=== PATIENT | female | born 1940 | race Caucasian/White ===

== ENCOUNTER 2016-10-20 01:06 | Inpatient (IN) | payer OTHER ==
[~2016-10-20] VITALS: Ht 160 cm; Wt 110.7 kg
[~2016-10-20 01:06] MED LIST: ASPIRIN EC81 M1 PO; CALCIUM 500 +1 EAC5 PO; ENALAPRIL-HCTZ1 EACH PO; FERROUSUL325 MG PO; FIORICET 50-301 EACH PO; FUROSEMIDE20 M1 PO; MAGNESIUM OXID400 M1 PO; OCUVITE EYE +1 EACH PO; VITAMIN C500 M8 PO; VYTORIN 10-201 EACH PO
--- NOTE | 2016-10-20 09:48 | Operative Report ---
Operative/Inv Procedure Report Surgery Date: 10/20/16 Name of Procedure: Left total knee arthroplasty Pre-Operative Diagnosis: Primary osteoarthritis left knee Post-Operative Diagnosis: Primary osteoarthritis left knee Estimated Blood Loss: less than 50ml Surgeon/Leading Firefighter: UYEN VIRK,KUSHAL Cason Anesthesia: block (SPINAL) IV Fluids: See anesthesia record Implants: Striker triathlon posterior stabilize knee size 5 femur, size 5 tibia, 27 patellar button and a 9 mm polyethylene insert Drains: None Specimens: Bone Tourniquet: 49 minutes Complications: None Condition: Stable Operative Indication: Patient is a 76-year-old female who has failed conservative treatment for her osteoarthritis of her left knee. She was indicated for surgical total knee arthroplasty. The risks and benefits of the procedure were discussed with the patient detail and she wished to proceed. Skilled set of hands was necessary provided by physician orthopedic physician assistant Yusuf Cason weighted with retraction positioning and component assembly throughout the case. Operative/Procedure Note Note: Anesthesia the patient's left leg had a tourniquet placed, a [place] catheter was placed in the left lower extremity is prepped and draped usual sterile fashion. To begin the procedure standard midline incision for total knee arthroplasty was performed. Sharp dissection was carried down through the skin and subcutaneous and tissue and fat. A medial parapatellar arthrotomy was performed and the patella was everted. Fat pad is removed from the patellar tendon. Patellar thickness was measured to be 23 mm and a plan resection of 9 mm was performed on the patella using patellar jig. Patella was then sized to be a size 27 symmetric patellar button in the jig for the 27th button was placed onto the kneecap and the lug holes were drilled. The knee was placed in flexion and the patella was retracted laterally. Z retractors were placed to protect the medial collateral ligaments. The cruciate leg lengths were resected sharply with a knife. The menisci removed both medially and laterally sharply. Intramedullary canal of the femur was entered with a step drill and the intramedullary canal distal cutting guide was placed. The distal cut of femur set for an 8 mm cut with a 6 valgus cut. Distal cut was made without complication bone was passed off as specimen. The intramedullary cutting guide was removed and the femur was sized. The femur sized to be a size 5 femur and a 4 in one size 5 femur cutting block was placed on the distal femur. Anterior, posterior, chamfer cuts were made with no complications. The box cut guide for a size 5 femur was placed on the distal femur and the box cut was made for posterior stabilized knee. Bone was passed off. Attention was then turned to the tibia. A pickle fork retractor was placed posterior to the tibia and the tibia was translated anteriorly. Step drill was used to enter the intramedullary canal of the tibia. Intramedullary cutting guide was placed on the tibia and a plan resection of 4 mm of bone off the medial side of the tibia was performed. This bone was passed off as specimen. The extension gap was measured and found to be 9 mm. The flexion gap was also 9 mm. A size 5 tibial trial was placed found to be the appropriate size for the tibia and a trial reduction was done with a 5 femur, 5 tibia and a 9 mm polyethylene insert. The knee had full extension and 100 of flexion. We cannot flex knee any more than 100 due to the size of the thigh. It was stable to varus and valgus stress at 0 and 60. The knee was taken through a range of motion and the tibial component rotation was marked. The instruments and components removed and the tibial tray was pinned in place. The keel cut was made. At this point all entrance removed the knee was pulse lavaged. The cement was mixed on the back table and the components were cemented with the tibial component cemented first followed by the femoral component and the patellar button. Excess cement was removed with curettes. A 9 mm polyethylene trial insert was placed onto the tibial tray the knee was placed in full extension while cement hardened. Once the cement hardened was taken through a range of motion and found to be stable at 0 and 60. A 9 mm polyethylene insert was opened and locked into the tibial tray. The wound was pulse lavaged and the tourniquet was released. The arthrotomy is closed #1 Vicryl interrupted sutures. The deep tissues closed with #1 Vicryl interrupted sutures. The subcutaneous tissues closed with 2-0 Vicryl interrupted sutures and the skin was closed lizzette. Sterile dressings applied and patient was awakened and taken recovery room in stable condition.
[2016-10-20 12:05] VITALS: BP 122/60
--- NOTE | 2016-10-20 12:38 | PN- Orthopedic ---
Subjective Subjective: The patient was seen this afternoon postoperatively. She reports that her pain is under adequate control and has no other complaints at the current time. Objective Vital Signs and I&Os Intake & Output 10/20 1600 10/20 0000 10/19 0000 Intake Total Output Total Balance Patient 244 lb Weight Vital signs: Blood pressure 110/72, pulse 70, but sure 98.7, O2 saturation 98% on room air. I's and O's: 1500 ML's in of lactated Ringer's/150 ML's out of urine via [place] catheter/EBL less than 100 Physical Exam: Gen.: Alert and in no obvious distress Skin: Warm and dry Cardiac: S1 and S2 regular Pulmonary: Bilateral breath sounds are equal and decreased at bases Extremities: Bilateral lower extremities are warm without calf tenderness or significant edema. Gross motor and sensory are intact. Left knee surgical dressing is clean, dry, and intact. There is an On-Q pain pump in place. Assessment/Plan Assessment/Plan Assessment: 76-year-old female status post left total knee arthroplasty. Postoperative the patient is progressing as expected and her pain is under adequate control. Plan: Out of bed with physical therapy patient is weightbearing as tolerated Continue current pain regiment 2 doses of postoperative prophylactic antibiotics Start anticoagulation tonight's with 5 mg of Coumadin by mouth 1 dose Follow-up morning laboratory studies Advance diet as tolerated Strict I's and O's Resume home medications Incentive spirometry Core Measures/Miscellaneous Venous Thromboembolism VTE Risk Factors: Age > 40, Obesity, Surgery VTE Contraindications: No Contraindications VTE Diagnosis: No Beta [place] Is Beta [place] a Home Med? No Antibiotics Is Patient on Antibiotics? Yes If Yes: prophylaxis
--- NOTE | 2016-10-20 13:41 | NUR ---
PATIENT ATE LUNCH CONSISTING OF FRESH FRUIT AND YOGURT CUP, UPON COMPLETION VOMITTED APPROXIMATELY 50 ML OF LIQUID MIXED WITH FOOD PARTICLES, NO COMPLAINTS OF ABDOMINAL PAIN, JUST SOME NAUSEA, ZOFRAN GIVEN WILL MONITOR.
--- NOTE | 2016-10-20 14:28 | NUR ---
PHYSICAL THERAPY: Recieved consult orders, reviewed chart. Patient s/p L elective TKA 10/20/2016. Patient was recieved in bed, c/o nausea with recent episode of vomitting and meds adm as appropriate. Patient refusing P.T. evaluation, transfer training, or bedlevel at this time 2* symptoms. Will f/u as appropraite.
--- NOTE | 2016-10-20 14:39 | NUR ---
PATIENT ADMITTED FROM PACU AT 1200. PATIENT ALERT AND ORIENTED X 3. PAIN OF 1/10 TO LEFT KNEE. ON-Q-PUMP INTACT AND SITE C,D&I. PATIENT C/O OF NAUSEA AND HAD VOMITUS X 2. ZOFRAN GIVEN FIRST WITH NO EFECT. REGLAN GIVEN WITH GOOD EFFECT. DAUGHTER AT BEDSIDE. CALL LIGHT WITHIN REACH. WILL CONTINUE TO MONITOR.
[2016-10-20 15:00] VITALS: BP 136/80
--- NOTE | 2016-10-20 15:25 | PN- Student ---
Subjective Subjective: Patient states she had some nausea and vomiting after lunch. States her vomit consisted of her lunch contents, and that the nurse had to give her two different medications to stop the severe nausea. Patient currently reports no problems and no pain. She states the worst the pain has been since surgery is a 1/10. She denies chest pain, shortness of breath, numbness or tingling in extremities, dysuria or flatus. Objective Objective: Vitals: BP: 136/80 Pulse: 69 Resp: 20 Temp: 97.3F SpO2: 92% RA Physical Exam: General: Patient resting comfortably in bed, well-appearing, in no acute distress. Alert and oriented to person, place, time and event. Skin: [place], warm and dry. Head: Normocephalic, atraumtic. Eyes: PERRL, EOMI. Cardiac: Regular rate and rhythm, normal S1/S2, no murmurs, rubs or gallops. Pulmonary: Clear to ausculation bilaterally, no wheezes, rhonchi, or rales. Abdomen: Soft, non-distended, non-tender, normoactive bowel sounds. Extremities: 2+ bilateral radial and dorsalis pedis pulses with sensory and motor intact. No calf tenderness, swelling or edema. Left knee covered by dressing and bandages with no obvious drainage. Results Results: Microbiology 10/20 UNK URINE ROUT: Urine Culture - RECD Assessment/Plan Assessment: Patient is a 76 year old female POD#0 s/p left total knee replacement without hospital stay complications. Plan: -Continue pain management as directed. -Continue ALPs. -Encourage out of bed ambulation as permitted. -Physical therapy as directed. -Coumadin as prescribed for DVT prophylaxis. -Ondasteron 4mg IV Q6hrs PRN for nausea. -Discontinue jane when weight bearing tolerated. -Monitor I/O's. -Encourage incentive spirometry. -Continue home meds as needed. Will discuss the above with PA Surgical team. Nehemias MAYNARD-S2
--- NOTE | 2016-10-20 15:30 | NUR ---
PHYSICAL THERAPY: ATTMEPTED TO SEE PATIENT AGAIN THIS AFTERNOON. PATIENT CONTINUES TO REFUSE P.T. DUE TO SYMPTOMS AND FATIGUE. PATIENT AWARE THAT SHE IS DEFERRING P.T. EVALUATION UNTIL TOMORROW MORNING. NURSING TO UTILIZE BEDSIDE COMMODE AND RW COMFORTABLE THIS P/M.
[2016-10-20 17:28] VITALS: BP 120/60
[2016-10-20 19:07] VITALS: BP 122/80
--- NOTE | 2016-10-20 19:58 | NUR ---
PATIENT REFUSED MORNING MEDICATION ON ARRIVAL TO FLOOR. CAESAR MADDOX AWARE. PATIENT TOOK EVENING MEDICATION WHICH INCLUDED WARFARIN AND LIPITOR. DENIES PAIN. PATIENT HAVING TOAST AND JUICE. WILL CONTINUE TO MONITOR.
[2016-10-20 21:26] VITALS: BP 124/80
[2016-10-21 01:19] VITALS: BP 122/70
[2016-10-21 06:34] VITALS: BP 126/70
--- NOTE | 2016-10-21 08:03 | PN- Orthopedic ---
Subjective Subjective: Reports expected knee soreness. Nausea / vomiting from yesterday has resolved. Now tolerating food. Not yet out of bed. No dizziness. No shortness of breath. No chest pains. Objective Vital Signs and I&Os Vital Signs Date Time Temp Pulse Resp B/P Pulse O2 O2 Flow FiO2 Ox Delivery Rate /04 2034 98.1 63 20 126/70 92 Room Air 03/ 0119 98.3 64 20 122/70 93 Room Air 03/ 2126 98.3 68 20 124/80 93 Room Air 03/ 1907 98.2 69 20 122/80 91 Room Air 03/ 1728 68 20 120/60 92 Room Air 03/08 1500 65 122/60 03/08 1500 97.3 69 20 136/80 92 Room Air / 1205 97.4 65 16 122/60 98 Room Air Intake & Output 03/ 1600 03/09 0800 03/09 0000 03/08 1600 03/08 0800 03/08 0000 Intake Total 940 630 Output Total 700 750 200 Balance -700 190 430 Intake, IV 700 150 Intake, Oral 240 480 Output, Urine 700 750 200 Patient 244 lb Weight Physical Exam: General - alert & oriented x 3. comfortable. no acute distress. Lungs - clear bilaterally. no w/r/r. Cardiac - s1s2. reg. Abdomen - soft. nontender. - jane draining clear, yellow urine. Extremities - warm bilaterally. no c/c/e. left leg dressing c/d/i. calves soft and nontender b/l. nvi. Assessment/Plan Assessment/Plan This 76-year-old female is POD#1 s/p left total knee arthroplasty tolerating food now. d/c iv fluids pain control as ordered PT eval, wbat dressing change on POD#2 luis eduardo-operative antibiotics complete f/u labs coumadin accordingly bowel regime d/c jane catheter d/c planning will d/w Core Measures/Miscellaneous Venous Thromboembolism VTE Risk Factors: Age > 40, Obesity, Surgery VTE Contraindications: No Contraindications VTE Diagnosis: No [place] Is Beta [place] a Home Med? No Antibiotics Is Patient on Antibiotics? Yes If Yes: prophylaxis
[2016-10-21 08:22] LABS: ABSOLUTE BASOPHIL COUNT 0 /CUMM (0.0-0.2); ABSOLUTE EOSINOPHIL COUNT 0 /CUMM (0.0-0.7); ABSOLUTE GRANULOCYTE CT 9.3 /CUMM (1.4-6.5); ABSOLUTE LYMPH COUNT 0.9 /CUMM (1.2-3.4); ABSOLUTE MONOCYTE COUNT 0.9 /CUMM (0.10-0.60); BASOPHIL % 0 % (0.0-2.0); EOSINOPHIL % 0.1 % (0-5); HEMATOCRIT 37.1 % (37-47); MEAN CORPUSCULAR HGB 33.6 PG (27.0-31.0); MEAN CORPUSCULAR HGB CONC 33.7 G/DL (33.0-37.0); MEAN CORPUSCULAR VOLUME 99.6 FL (81.0-99.0); MEAN PLATELET VOLUME 9.7 FL (7.4-10.4); PLATELET COUNT 193 /CUMM (130-400); RBC DISTRIBUTION WIDTH 12.8 % (11.5-14.5); RED BLOOD CELL CT 3.72 /CUMM (4.20-5.40); WHITE BLOOD CELL COUNT 11.1 /CUMM (4.8-10.8)
[2016-10-21 08:40] LABS: PT 11.3 SEC (9.4-12.5)
[2016-10-21 09:15] LABS: GRANULOCYTE % 83.3 % (42.2-75.2)
--- NOTE | 2016-10-21 13:27 | NUR ---
PT SAT UP WITH PHYSICAL THERAPY. PT FEELING LIGHTHEADED AND DIZZY. BP 98/52 HR 70 SURG CAESAR MADDOX NOTIFIED. NO NEW ORDERS AT THIS TIME. PT DRINKING CUP OF WATER AT THIS TIME AND IN BED. PHYSICAL THERAPIST GRACY WILL RETURN LATER IN THE DAY. THIS NURSE WILL CONTINUE TO MONITOR PATIENT.
--- NOTE | 2016-10-21 14:29 | NUR ---
1400 PT SITTING UP IN BED, BP 122/78, HR 68.
--- NOTE | 2016-10-21 14:46 | NUR ---
1430 PT WALKED STEPS WITH PHYSICAL THERAPY AND BECAME LIGHTED AND NAUSEOUS. PT SITTING DOWN IN THE CHAIR AT THIS TIME. BP 118/70 HR 70. SURG CAESAR MADDOX NOTIFIED. NO NEW ORDERS AT THIS TIME. ZOFRAN WILL BE GIVEN TO PATIENT FOR NAUSEA.
[2016-10-21 14:49] VITALS: BP 118/58
--- NOTE | 2016-10-21 16:38 | NUR ---
1500 - PT STATES SHE IS NO LONGER EXPERIENCING NAUSEA.
--- NOTE | 2016-10-21 16:39 | NUR ---
PT GIVEN TORADOL AT 1546 FOR 10/10 PAIN. PATIENT SLEEPING IN BED AT THIS TIME.
--- NOTE | 2016-10-21 21:06 | NUR ---
SETH REMOVED AT 0830 AM TODAY. PATIENT VOIDED 400 ML AT 1400. PT AX1 TO TOILET WITH ROLLING WALKER.
[2016-10-21 22:13] VITALS: BP 126/64
[2016-10-22 07:35] VITALS: BP 128/60
[2016-10-22 08:09] LABS: ABSOLUTE BASOPHIL COUNT 0 /CUMM (0.0-0.2); ABSOLUTE EOSINOPHIL COUNT 0 /CUMM (0.0-0.7); ABSOLUTE GRANULOCYTE CT 7.4 /CUMM (1.4-6.5); BASOPHIL % 0.2 % (0.0-2.0); EOSINOPHIL % 0.1 % (0-5); GRANULOCYTE % 78.6 % (42.2-75.2); HEMATOCRIT 35.1 % (37-47); MEAN CORPUSCULAR HGB 33.3 PG (27.0-31.0); MEAN CORPUSCULAR HGB CONC 33.4 G/DL (33.0-37.0); MEAN CORPUSCULAR VOLUME 99.7 FL (81.0-99.0); PLATELET COUNT 184 /CUMM (130-400); RBC DISTRIBUTION WIDTH 12.8 % (11.5-14.5); RED BLOOD CELL CT 3.52 /CUMM (4.20-5.40); WHITE BLOOD CELL COUNT 9.5 /CUMM (4.8-10.8)
[2016-10-22 08:18] LABS: PT 14.5 SEC (9.4-12.5)
--- NOTE | 2016-10-22 08:59 | PN- Orthopedic ---
See Addendum Subjective Subjective: Patient reporting no acute overnight events. States that she was "sick" the past two days, associates some of her symptoms to an intolerance of pain medication. States that she is finally feeling better. Presently denies chest pain, shortness of breath, difficulty breathing. Denies nausea and vomitting. Has been oob this am to ambulate, anticipates later today will ambulate for a greater distance and possibly attempt stairs. Is interested in discharge to home tomorrow. Objective Vital Signs and I&Os Vital Signs Date Time Temp Pulse Resp B/P Pulse O2 O2 Flow FiO2 Ox Delivery Rate 10/22 0735 98.5 75 20 128/60 91 Room Air 10/21 2213 98.6 61 20 126/64 95 10/21 1449 98.2 68 22 118/58 95 Intake & Output 10/22 1600 10/22 0800 10/22 0000 10/21 1600 10/21 0800 10/21 0000 Intake Total 130 490 600 940 Output Total 400 700 750 Balance 130 490 -400 -100 190 Intake, IV 10 10 600 700 Intake, Oral 120 480 0 240 Number 0 Bowel Movements Output, Urine 400 700 750 Physical Exam: General: Alert and oriented x3, no acute distress Cardiac: RRR, s1s2 Pulmonary: CTA bilaterally Abdomen: Non tender, non distended Extremities: Moves all extremities, distal sensation intact. Motor 5/5 in plantar and dorsi flexion. Skin warm and well perfused. DP pulses palpable bilaterally. Bilateral calves soft and non-tender. Surgical site: dressing dry and intact. skin edges well approximated, no drainage, minimal luis eduardo-incisional erythema. new dressing applied. Assessment/Plan Assessment/Plan This is a 76 year old female, POD 2 s/p tkr -Continue current pain regimen -COntinue oob with pt, must clear stairs prior to discharge -Miralax/colace for bowel regimen if no bm today -Continue diet as tolerate -F/U am labs -Coumadin dose per inr Will mishaw Dr. Negrete Core Measures/Miscellaneous Venous Thromboembolism VTE Risk Factors: Age > 40, Obesity, Surgery VTE Contraindications: No Contraindications VTE Diagnosis: No Beta [place] Is Beta [place] a Home Med? No Antibiotics Is Patient on Antibiotics? Yes If Yes: prophylaxis
--- NOTE | 2016-10-22 09:08 | RADIOLOGY REPORT ---
EXAMINATION: XR KNEE, LEFT CLINICAL INFORMATION: Status post left total knee arthroplasty. COMPARISON: Preoperative evaluation 05/10/2016. TECHNIQUE: Frontal and lateral of the left knee. FINDINGS: There are post left total knee arthroplasty changes with metallic distal femoral and proximal tibial components with evidence of resurfacing of the patella with a radiolucent spacer. There is no evidence of immediate complication or fracture. There is a small amount of air in the joint space. Multiple skin clips identified. There is moderate atherosclerotic calcification of the distal femoral and popliteal artery. IMPRESSION: Postoperative changes as noted.
[2016-10-22 14:37] VITALS: BP 125/82
[2016-10-22] MEDS ORDERED: COUMADIN5 M2 PO (15:18)
--- NOTE | 2016-10-22 15:37 | Patient Discharge Instructions ---
Discharge Instructions General Discharge Information You were seen/treated for: LEFT KNEE PAIN SECONDARY TO OSTEOARTHRITIS You had these procedures: LEFT TOTAL KNEE REPLACEMENT Watch for these problems: INCREASING PAIN, REDNESS, WARMTH, SWELLING. DRAINAGE OF ANY TYPE FROM INCISION. INABILITY TO BEAR WEIGHT ON LEFT LEG. FEVER >101.5 Do not soak the wound: Yes No bath, but you may shower: Yes Other wound care: Keep wound clean and dry, daily dry dressing changes Special Instructions: Coumadin: Daily dose is subject to change. It depends on your INR. Your INR will be tested two times per week. Please follow instructions that will given by Dr. Velarde's office regarding dose of coumadin you are to be taking. Diet Continue normal diet: Yes Recommended Diet: Regular Activity Full Activity/No Limits: No Activity Self Limited: Yes Pounds, do NOT lift more than: 10 Additional ACTIVITY Info: weight bear as tolerated Acute Coronary Syndrome Inclusion Criteria At DC or during hospital stay patient has or had the following: ACS DIAGNOSIS No Discharge Core Measures Meds if any: Prescribed or Continued at Discharge Meds if any: NOT Prescribed or Continued at Discharge Congestive Heart Failure Inclusion Criteria At DC or during hospital stay patient has or had the following: CHF DIAGNOSIS No Discharge Core Measures Meds if any: Prescribed or Continued at Discharge Meds if any: NOT Prescribed or Continued at Discharge Cerebrovascular accident Inclusion Criteria At DC or during hospital stay patient has or had the following: CVA/TIA Diagnosis No Discharge Core Measures Meds if any: Prescribed or Continued at Discharge Meds if any: NOT Prescribed or Continued at Discharge Venous thromboembolism Inclusion Criteria VTE Diagnosis No VTE Type NONE VTE Confirmed by (Test) NONE Discharge Core Measures - Per Current guidelines, there needs to be overlap - treatment for the first 5 days of Warfarin therapy. - If discharged on Warfarin prior to 5 days of - overlap therapy, the patient will need to be - assessed for post discharge needs including - *Post discharge parental anticoagulation - *Warfarin and/or parental anticoagulation education - *Follow up date to check INR post discharge At least 5 days overlap therapy as Inpatient No Meds if any: Prescribed or Continued at Discharge Note: Overlap Therapy is Warfarin and Anticoagulant Meds if any: NOT Prescribed or Continued at Discharge
--- NOTE | 2016-10-22 19:20 | Surgical Discharge Summary ---
Visit Information Visit Dates Admission Date: 10/20/16 Discharge Date: 10/23/2016 History of Present Illness Chief Complaint: Left knee pain secondary to unilateral primary osteoarthritis Medical History Blood Transfusion Hx: No Neurological: NONE EENT: NONE Cardiovascular: hypertension Respiratory: NONE Gastrointestinal: NONE Hepatic: NONE Renal: NONE Musculoskeletal: degen joint disease, osteoarthritis Psychiatric: NONE Endocrine: NONE Blood Disorders: NONE Cancer(s): NONE PHYS THER/Reproductive: NONE History of MRSA: No History of VRE: No History of CDIFF: No Isolation History: Standard Influenza Vaccine: 05/15/16 Surgical History Pertinent Surgical History: non-contributory Psychosocial History Where Do You Live? Home Who Do You Live With? Family Services at Home: None What is Your Primary Language? Cameroonian Review of Systems: see H&P Hospital Course Course Attending Physician: KUSHAL QIU MD Primary Care Physician: MAGDALENA VIRK,[facility] Course: Patient was admitted to hospital on 10/20/2016 for elective left total knee replacement. She tolerated the procedure well. She was transferred to general surgical floor. Her diet was advanced and tolerated. Her vital signs were stable and within normal limits. She voided spontaneously. Her pain was well controlled. She was evalutated and treated by PT. She was deemed appropriate for discharge to home with services. She will follow up with Dr. Qiu as an outpatient. Allergies: Coded Allergies: No Known Allergies (10/07/16) Disposition Summary Disposition Principal Diagnosis: Left knee unilateral primary osteoarthritis Additional Diagnosis: None Discharge Disposition: home health services Discharge Instructions General Discharge Information Code Status: Full Code Patient's Diet: Regular, advance as tolerated Patient's Activity: WBAT Follow-Up Instructions/Appts: Please contact Dr. Qiu's office to arrange/confirm follow up appointment to be seen in 2 weeks from date of surgery. Medications at Discharge Discharge Medications: Stop taking the following medications: Aspirin (Ecotrin*) 81 MG TABLET. ORAL DAILY Continue taking these medications: Ezetimibe/Simvastatin (Vytorin 10-20 MG Tablet) 10 MG-20 MG TABLET 1 Tablet ORAL DAILY Enalapril/Hydrochlorothiazide (Enalapril-Hctz 10-25 MG Tablet) 10 MG-25 MG TABLET 1 Tablet ORAL DAILY Furosemide (Furosemide) 20 MG TABLET 1 Tablet ORAL DAILY as needed for EDEMA Butalb/Acetaminophen/Caffeine (Fioricet 50-300-40 MG Capsule) 50 MG-300 MG-40 MG CAPSULE 1 Tablet ORAL DAILY as needed for MIGRAINE Mv-Mn/FA/Vit K1/Lycop/Lut/Zeax (Ocuvite Eye + Multi Tablet) 200 MCG-15 MCG-150 MCG-5 MG-1 MG TABLET 1 Tablet ORAL DAILY Ferrous Sulfate (Ferrousul) 325 MG (65 MG IRON) TABLET 1 Tablet ORAL DAILY Magnesium Oxide (Magnesium Oxide) 400 MG TABLET 1 Tablet ORAL TWICE DAILY Ascorbic Acid (Vitamin C) 500 MG TABLET 1 Tablet ORAL DAILY Calcium Carbonate/Vitamin D3 (Calcium 500 + D Tablet) 500 MG-400 TABLET 1 Tablet ORAL DAILY Start taking the following new medications: Hydromorphone HCl (Hydromorphone HCl) 2 MG TABLET 2 Milligram ORAL EVERY 4 HOURS NEEDED as needed for PAIN Qty = 30 No Refills Docusate Sodium (Docusate Sodium) 100 MG CAPSULE 100 Milligram ORAL TWICE DAILY Qty = 30 No Refills Warfarin Sodium (Coumadin) 5 MG TABLET 1 Tablet ORAL DAILY Qty = 30 No Refills Instructions: please await specific instructions from Dr. Qiu regarding daily dose of coumadin prior to taking
[2016-10-22 23:45] VITALS: BP 130/80
[2016-10-23 06:54] VITALS: BP 136/80
[2016-10-23 08:31] LABS: PT 18.4 SEC (9.4-12.5)
[2016-10-23 08:48] LABS: ABSOLUTE BASOPHIL COUNT 0 /CUMM (0.0-0.2); ABSOLUTE EOSINOPHIL COUNT 0.1 /CUMM (0.0-0.7); ABSOLUTE GRANULOCYTE CT 6.4 /CUMM (1.4-6.5); ABSOLUTE LYMPH COUNT 1.2 /CUMM (1.2-3.4); ABSOLUTE MONOCYTE COUNT 0.8 /CUMM (0.10-0.60); BASOPHIL % 0.2 % (0.0-2.0); EOSINOPHIL % 0.7 % (0-5); GRANULOCYTE % 75.2 % (42.2-75.2); HEMATOCRIT 34.2 % (37-47); MEAN CORPUSCULAR HGB CONC 33.2 G/DL (33.0-37.0); MEAN CORPUSCULAR VOLUME 99.5 FL (81.0-99.0); MEAN PLATELET VOLUME 9.4 FL (7.4-10.4); PLATELET COUNT 176 /CUMM (130-400); RED BLOOD CELL CT 3.43 /CUMM (4.20-5.40); WHITE BLOOD CELL COUNT 8.6 /CUMM (4.8-10.8)
[2016-10-23] MEDS ORDERED: HYDROMORPHONE HC2 M1 PO (09:45)
[2016-10-23] MEDS ORDERED: DOCUSATE SODIU100 M3 PO (09:47)
[2016-10-23 09:56] VITALS: BP 146/80
--- NOTE | 2016-10-23 11:35 | PN- Orthopedic ---
Surgical Brief Attending Note Brief Attending Note: Patient seen and examined this morning. Doing well, just finished stairs with PT. Last pain pill was yesterday evening. She is pleased with her progress and would like to go home today. Exam: LLE - Incision clean and dry, lizzette intact. No calf pain or swelling. Intact ankle dorsiflexion/plantarflexion/EHL. Sensation intact to light touch over left foot. A/P: 76yo F now POD#[address] Velarde. Plan for d/c home today. Pain control with hydromorphone. Warfarin for DVT prophylaxis. Activity as tolerated, walker for stability. Advance diet. Follow up with Dr. Velarde as scheduled.
== END 2016-10-23 15:05 | disposition home health service (06) | DRG 470 ==
LOC: ENRESERVDT → ENRESERVTM → ENPENDDIS 01:06 → SDA 01:06 → 2NA 01:06
PROVIDERS: Nurse Practitioner; Physician Assistant Surgical; ADMIT Orthopaedic Surgery Foot and Ankle Surgery
PROC: 0SRD0J9 Replacement of Left Knee Joint with Synthetic Substitute, Cemented, Open Approach (ICD-10-PCS; principal; 2016-10-20)
DX: M17.12 Unilateral primary osteoarthritis, left knee (principal); Z68.41 Body mass index [BMI] 40.0-44.9, adult; E66.01 Morbid (severe) obesity due to excess calories; I10 Essential (primary) hypertension; E78.5 Hyperlipidemia, unspecified; Z87.891 Personal history of nicotine dependence
CPT/HCPCS: 2NASP; 73560-LT; 82436; 87086; 88305; 97110-GO; 97116-GO; 97161-GP; 97530-GO; C1713; C9290; J1200; J2405; J2765; J2795; J3370; J7060